=== PATIENT | male | born 2000 | race African-American/Black ===

== ENCOUNTER 2025-01-31 07:15 | Emergency (ER) | payer OTHER ==
[2025-01-31 07:32] VITALS: BP 119/71; PULSE 65; RESP 18; TEMP 97.9; BMI 25.9
== END 2025-01-31 08:54 | disposition left against medical advice (07) ==
LOC: JER 07:15
DX: K59.00 Constipation, unspecified (principal); R10.31 Right lower quadrant pain; R10.32 Left lower quadrant pain
CPT/HCPCS: 99283-25